=== PATIENT | female | born 1955 | race African-American/Black ===

== ENCOUNTER 2022-02-26 05:15 | Day surgery (SDC) | payer OTHER ==
[~2022-02-26] VITALS: Ht 160 cm; Wt 131.5 kg
[2022-02-26] MEDS ORDERED: CLINDAMYCIN PHOS 600 MG/ D5W 50 ML PREMIX IV ONE (07:00)
[2022-02-26] MEDS ORDERED: MIDAZOLAM HCL 5 MG/5 ML VIAL ONE ×2 (07:13→07:17)
[2022-02-26] MEDS ORDERED: MEPERIDINE 100 MG INJ. 100 MG/ML VIAL ONE (07:13)
[2022-02-26] MEDS ORDERED: GLYCOPYRROLATE 0.2 MG/ML VIAL ONE (07:14)
[2022-02-26] MEDS ORDERED: SIMETHICONE 40 MG/0.6 ML ML ONE (07:17)
[2022-02-26 14:17] VITALS: BP_SYST 145
== END 2022-02-26 09:00 | disposition home or self-care (01) ==
LOC: SDS 05:15 → SMU 05:15 → SDS 09:00
PROVIDERS: ATTEND Colon & Rectal Surgery
DX: Z12.11 Encounter for screening for malignant neoplasm of colon (principal); D12.5 Benign neoplasm of sigmoid colon; K57.30 Diverticulosis of large intestine without perforation or abscess without bleeding; I10 Essential (primary) hypertension; E78.5 Hyperlipidemia, unspecified; M10.9 Gout, unspecified; Z96.642 Presence of left artificial hip joint; Z88.0 Allergy status to penicillin; Z79.899 Other long term (current) drug therapy; Z20.822 Contact with and (suspected) exposure to COVID-19
CPT/HCPCS: 36415 ×2; 45385; 87426; 82962; 88305; U0003; G0378; J3490 ×2; J2250; J2175